=== PATIENT | female | born 1980 | race Caucasian/White ===

== ENCOUNTER 2021-06-06 10:57 | Outpatient (CLI) | payer OTHER, SELFPAY ==
[2021-06-09 08:18] LABS: Progesterone 11.8 ng/mL (***)
== END 2021-06-06 10:58 | disposition home or self-care (01) ==
LOC: ANHLAB 11:00
PROVIDERS: PCP Physician Assistant Medical; Visit Provider Obstetrics & Gynecology
DX: Z87.59 Personal history of other complications of pregnancy, childbirth and the puerperium (principal)
CPT/HCPCS: 36415; 84144; 84702

== ENCOUNTER 2021-06-08 12:53 | Outpatient (CLI) | payer OTHER, SELFPAY | END 2021-06-08 12:54 | disposition home or self-care (01) | LOC: ANHLAB 12:55 | PROVIDERS: PCP Physician Assistant Medical; Visit Provider Obstetrics & Gynecology | DX: Z87.59 Personal history of other complications of pregnancy, childbirth and the puerperium (principal) | CPT/HCPCS: 36415; 84702 ==

== ENCOUNTER 2021-06-14 12:28 | Outpatient (CLI) | payer OTHER, SELFPAY | END 2021-06-14 12:29 | disposition home or self-care (01) | LOC: ANHLAB 12:30 | PROVIDERS: PCP Physician Assistant Medical; Visit Provider Obstetrics & Gynecology | DX: Z34.90 Encounter for supervision of normal pregnancy, unspecified, unspecified trimester (principal); Z3A.00 Weeks of gestation of pregnancy not specified | CPT/HCPCS: 36415; 86850; 86900; 86901 ==

== ENCOUNTER 2021-08-02 11:43 | Outpatient (CLI) | payer OTHER, SELFPAY ==
--- NOTE | ~2021-08-02 | US_ITS ---
EXAMINATION: US OB follow up EXAM DATE: 08/02/2021 12:12 INDICATION: O46.90 - Antepartum hemorrhage, unspecified, unspecified. 2nd trimester. TECHNIQUE: Pelvic obstetrical transabdominal sonogram was performed by a technologist. There are mu ltiple grayscale and Doppler images available for interpretation. Comparison is made to prior examina tion from 06/14/2021. FINDINGS: There is a single fetus identified in breech presentation with a heart rate of 157 beats pe r minute. The placenta is located in the fundal position. There is anterior placental marginal relati vely homogeneous hypoechoic region without internal vascularity, could be retroplacental marginal hem atoma, region measuring 1 cm in thickness by up to 3.6 cm in diameter. Potentially could be the same region identified on limited available images from an ultrasound last month. BIOMETRIC DATA: Biparietal diameter (BPD): 2.9 cm ----------------> 15 weeks 2 days. Head circumference (HC): 10.5 cm ----------------> 15 weeks 0 days. Abdominal circumference (AC): 9.0 cm ----------> 15 weeks 1 day. Femur length (FL): 1.7 cm --------------------------> 15 weeks 1 day. These measurements are concordant. HC/AC ratio is 1.17 (The 5th -- 95th percentile range is 1.05-1.38. Estimated weight is 116 g +/- 17 g. This is the 91st percentile when the currently reported cl inical gestation age 14 weeks 2 days, clinical estimated date of delivery (KAROLINA-OPE) 01/29 is used. Fet al estimated gestational age based on measurements from this exam is 15 weeks 1 day, with an estimate d date of delivery (KAROLINA-AUA) 01/23. IMPRESSION: 1. Single fetus in breech presentation with heart rate 157 beats per minute. 2. Estimated weight of 116 grams, 91st percentile using the currently reported clinical gestat ion age of 14 weeks 2 days, KAROLINA(OPE) 01/29. 3. Placental marginal hypoechoic region, could be retroplacental hematoma. Reviewed, dictated and finalized at location A. ECTION SUPERVISOR IMPRESSION: 1. Single fetus in breech presentation with heart rate 157 beats per minute. 2. Estimated weight of 116 grams, 91st percentile using the currently re ported clinical gestation age of 14 weeks 2 days, KAROLINA(OPE) 01/29. 3. Placental marginal hypoechoic region, could be retroplacental hematoma.
== END 2021-08-02 11:44 | disposition home or self-care (01) ==
LOC: ANHIMG 11:46
PROVIDERS: PCP Physician Assistant Medical; Visit Provider Obstetrics & Gynecology
DX: O46.90 Antepartum hemorrhage, unspecified, unspecified trimester (principal); Z3A.14 14 weeks gestation of pregnancy; O32.1XX0 Maternal care for breech presentation, not applicable or unspecified
CPT/HCPCS: 76816

== ENCOUNTER 2021-09-18 09:51 | Outpatient (CLI) | payer OTHER, SELFPAY ==
[2021-09-18 11:26] LABS: Glucose 1 Hour PP 50gm Dose 165 mg/dL
== END 2021-09-18 09:52 | disposition home or self-care (01) ==
PROVIDERS: PCP Physician Assistant Medical; Visit Provider Obstetrics & Gynecology
DX: O09.92 Supervision of high risk pregnancy, unspecified, second trimester (principal); Z3A.00 Weeks of gestation of pregnancy not specified
CPT/HCPCS: 36415; 82947

== ENCOUNTER 2021-09-26 09:25 | Outpatient (CLI) | payer OTHER, SELFPAY ==
[2021-09-26 09:54] LABS: Glucose Fasting Gestational 98 mg/dL (>/=95)
[2021-09-26 11:28] LABS: Glucose 1 Hour Gest 182 mg/dL (>/=180)
[2021-09-26 12:58] LABS: Glucose 2 Hour Gest 144 mg/dL (>/= 155)
[2021-09-26 13:48] LABS: Glucose 3 Hour Gest 97 mg/dL (>/=140)
== END 2021-09-26 09:26 | disposition home or self-care (01) ==
PROVIDERS: PCP Physician Assistant Medical; Visit Provider Obstetrics & Gynecology
DX: R73.09 Other abnormal glucose (principal)
CPT/HCPCS: 36415; 82951; 82952

== ENCOUNTER 2021-11-09 11:13 | Outpatient (CLI) | payer OTHER, SELFPAY ==
[2021-11-09 11:31] LABS: Basophils Percent Auto 0.1 % (0.2-1.2); Eosinophils Absolute Auto 0.1 K/mm3 (0-0.3); Eosinophils Percent Auto 0.9 % (0-4.4); Hematocrit 37.2 % (37.0-47.0); Immature Granulocyte Absolute 0.06 K/mm3 (0.00-0.031); Immature Granulocyte Percent A 0.7 % (0-0.5); Lymphocytes Absolute Auto 1.73 K/mm3 (0.9-3.2); Lymphocytes Percent Auto 19.4 % (18.3-44.2); Mean Corpuscular HGB Conc 32.3 g/dl (32-36); Mean Corpuscular Hemoglobin 30.7 pg (26-34); Mean Corpuscular Volume 95.1 fl (80-100); Mean Platelet Volume 10.2 fl (7.4-10.4); Monocytes Absolute Auto 0.6 K/mm3 (0.1-0.6); Monocytes Percent Auto 6.9 % (2.6-8.5); Neutrophils Absolute Auto 6.4 K/mm3 (1.3-6.7); Platelet Count Result 162 k/mm3 (150-375); Red Blood Count 3.91 M/mm3 (4.2-5.4); Red Cell Distribution Width 16.2 % (11.5-14.5); White Blood Count 8.9 K/mm3 (4.5-10.0)
[2021-11-09 12:27] LABS: HIV 1/2 Ab P24 Ag Result Negative (Negative)
[2021-11-13 07:49] LABS: Rapid Plasma Reagin Non-Reactive (NonReactive)
== END 2021-11-09 11:14 | disposition home or self-care (01) ==
LOC: ANHLAB 11:15
PROVIDERS: PCP Physician Assistant Medical; Visit Provider Obstetrics & Gynecology
DX: Z34.90 Encounter for supervision of normal pregnancy, unspecified, unspecified trimester (principal); Z3A.00 Weeks of gestation of pregnancy not specified
CPT/HCPCS: 36415; 85025; 86592; 86703; G0432

== ENCOUNTER 2021-11-14 15:00 | Outpatient (RCR) | payer OTHER, SELFPAY ==
[2021-10-12 09:39] VITALS: BMI 42.7
[2021-10-12 09:44] VITALS: BMI 42.7
== END 2022-01-03 13:38 | disposition home or self-care (01) ==
LOC: ANHDMC 15:00
PROVIDERS: PCP Physician Assistant Medical; Visit Provider Obstetrics & Gynecology
DX: O24.419 Gestational diabetes mellitus in pregnancy, unspecified control (principal); Z3A.00 Weeks of gestation of pregnancy not specified; Z71.3 Dietary counseling and surveillance; Z71.89 Other specified counseling
CPT/HCPCS: 97802; G0108

== ENCOUNTER 2022-01-23 16:53 | Inpatient (IN) | payer OTHER, SELFPAY ==
[2022-01-23] VITALS (11 sets, daily range): BP systolic 113–174; BP diastolic 73–96; PULSE 72–100; TEMP 36.2; BMI 41.3
--- NOTE | 2022-01-23 18:54 | LDADM ---
This patient, Claudia Coffman, was admitted to Labor/Delivery/Recovery 104 on 01/23/22 at 16:53. Plans for labor, pain management and were discussed with patient. Patient/family oriented to hospital policies and general routines including ID bracelet, bed and alarms, visiting hours, pain management, procedures, bathroom and other care routines, personal items, smoking policy, room service/diet and guest tray routines, infant security routines, and visiting hours. Patient/Family are encouraged to report perceived risks to care and to ask questions if they do not understand what they are told or what they should do. See OBIX for further documentation.
[2022-01-23 19:08] LABS: Glucose Point of Care 92 mg/dl (65-105)
[2022-01-23 19:11] LABS: Basophils Percent Auto 0.1 % (0.2-1.2); Eosinophils Absolute Auto 0.1 K/mm3 (0-0.3); Eosinophils Percent Auto 0.6 % (0-4.4); Hematocrit 35.1 % (37.0-47.0); Hemoglobin 11.7 g/dL (12.0-15.0); Immature Granulocyte Absolute 0.06 K/mm3 (0.00-0.031); Immature Granulocyte Percent A 0.7 % (0-0.5); Lymphocytes Absolute Auto 1.44 K/mm3 (0.9-3.2); Lymphocytes Percent Auto 17.2 % (18.3-44.2); Mean Corpuscular HGB Conc 33.3 g/dl (32-36); Mean Corpuscular Hemoglobin 31.5 pg (26-34); Mean Corpuscular Volume 94.4 fl (80-100); Mean Platelet Volume 10.7 fl (7.4-10.4); Monocytes Absolute Auto 0.5 K/mm3 (0.1-0.6); Monocytes Percent Auto 6.2 % (2.6-8.5); Neutrophils Absolute Auto 6.3 K/mm3 (1.3-6.7); Neutrophils Percent Auto 75.2 % (45.5-73.1); Platelet Count Result 180 k/mm3 (150-375); Red Blood Count 3.72 M/mm3 (4.2-5.4); Red Cell Distribution Width 15.2 % (11.5-14.5); White Blood Count 8.4 K/mm3 (4.5-10.0)
[2022-01-23] MEDS: OXYTOCIN 30 UNITS/NS 500 ML 30 UNITS/500 ML BAG IV CONT (22:14)
[2022-01-23] MEDS: LACTATED RINGERS 1,000 ML 125 ML IV CONT (22:14)
[2022-01-23 22:21] LABS: Glucose Point of Care 121 mg/dl (65-105)
[2022-01-23] MEDS: INSULIN HUMAN NPH (*BKC) 100 UNITS/ML 30 UNITS SUB-Q (22:27)
[2022-01-24] VITALS (121 sets, daily range): BP systolic 93–161; BP diastolic 42–94; PULSE 62–123; RESP 16–18; TEMP 36.2–37; O2SAT 93–100
[2022-01-24 02:07] LABS: Glucose Point of Care 81 mg/dl (65-105)
[2022-01-24 06:50] LABS: Glucose Point of Care 77 mg/dl (65-105)
[2022-01-24] MEDS: LACTATED RINGERS 1,000 ML 125 ML IV CONT ×3 (07:29→11:41)
--- NOTE | 2022-01-24 08:42 | WPDANESEPP ---
Anes - Eval Pre Procedure Procedure: labor epidural Date/Time: 01/24/22 08:42 Pre Op Diagnosis: iol Patient Data Age: 41 Gender: F Height: 1.77 m Weight: 129 kg Last Vital Signs Temp 36.2 C L 01/24/22 06:44 Pulse 78 01/24/22 08:30 BP 147/81 H 01/24/22 08:30 O2 Del Method Room Air 01/23/22 18:53 Allergies Allergy/AdvReac Type Severity Reaction Status Date / Time No Known Allergies Allergy Verified 01/23/22 19:33 Home Medications Medication Instructions Recorded Confirmed Type lancets #100 ea 10/12/21 01/25/22 Rx blood-glucose meter (Blood Glucose #1 ea 10/27/21 01/25/22 Rx Monitoring kit) blood sugar diagnostic (Blood #100 ea 12/28/21 01/25/22 Rx Glucose Test strips) Laboratory Tests 01/23/22 01/23/22 01/23/22 19:01 19:01 19:01 WBC 8.4 K/mm3 K/mm3 (4.5-10.0) RBC 3.72 M/mm3 L M/mm3 (4.2-5.4) Hgb 11.7 g/dL L g/dL (12.0-15.0) Hct 35.1 % L % (37.0-47.0) MCV 94.4 fl fl (80-100) MCH 31.5 pg pg (26-34) MCHC 33.3 g/dl g/dl (32-36) RDW 15.2 % H % (11.5-14.5) Plt Count 180 k/mm3 k/mm3 (150-375) MPV 10.7 fl H fl (7.4-10.4) Immature Gran % (Auto) 0.7 % H % (0-0.5) Neut % (Auto) 75.2 % H % (45.5-73.1) Lymph % (Auto) 17.2 % L % (18.3-44.2) [place] % (Auto) 6.2 % % (2.6-8.5) Eos % (Auto) 0.6 % % (0-4.4) Baso % (Auto) 0.1 % L % (0.2-1.2) Lymph # (Auto) 1.44 K/mm3 K/mm3 (0.9-3.2) [place] # (Auto) 0.5 K/mm3 K/mm3 (0.1-0.6) Eos # (Auto) 0.1 K/mm3 K/mm3 (0-0.3) Baso # (Auto) 0.0 K/mm3 K/mm3 (0.0-0.1) Abs Immat Gran (auto) 0.06 K/mm3 H K/mm3 (0.00-0.031) Absolute Neuts (auto) 6.3 K/mm3 K/mm3 (1.3-6.7) Absolute Nucleated RBC 0.0 K/mm3 K/mm3 (0.0-0.012) Nucleated RBC % 0.0 % % (0.0-0.2) POC Capillary Glucose RPR Pending Blood Type O Positive Antibody Screen Negative 01/23/22 01/23/22 01/24/22 19:04 22:16 02:05 WBC RBC Hgb Hct MCV MCH MCHC RDW Plt Count MPV Immature Gran % (Auto) Neut % (Auto) Lymph % (Auto) [place] % (Auto) Eos % (Auto) Baso % (Auto) Lymph # (Auto) [place] # (Auto) Eos # (Auto) Baso # (Auto) Abs Immat Gran (auto) Absolute Neuts (auto) Absolute Nucleated RBC Nucleated RBC % POC Capillary Glucose 92 mg/dl mg/dl 121 mg/dl H mg/dl 81 mg/dl mg/dl (65-105) (65-105) (65-105) RPR Blood Type Antibody Screen 01/24/22 06:43 WBC RBC Hgb Hct MCV MCH MCHC RDW Plt Count MPV Immature Gran % (Auto) Neut % (Auto) Lymph % (Auto) [place] % (Auto) Eos % (Auto) Baso % (Auto) Lymph # (Auto) [place] # (Auto) Eos # (Auto) Baso # (Auto) Abs Immat Gran (auto) Absolute Neuts (auto) Absolute Nucleated RBC Nucleated RBC % POC Capillary Glucose 77 mg/dl mg/dl (65-105) RPR Blood Type Antibody Screen Patient hx anesthesia problems: none Family hx anesthesia problems: none Results Review: All pre-operative results and documents have been reviewed as part of the pre-operative evaluation. [facility] Past Medical History Medical History GERD (gastroesophageal reflux disease) Headache IBS (irritable bowel syndrome) Missed x1 Vaginal delivery x1 Surgical History Surgical History (Reviewed 01/28
[2022-01-24 09:13] LABS: Glucose Point of Care 90 mg/dl (65-105)
[2022-01-24 11:45] LABS: Glucose Point of Care 98 mg/dl (65-105)
[2022-01-24 13:16] LABS: Glucose Point of Care 86 mg/dl (65-105)
[2022-01-24] MEDS: OXYTOCIN 30 UNITS/NS 500 ML 30 UNITS/500 ML BAG 125 UNITS IV CONT (14:21)
--- NOTE | 2022-01-24 17:31 | OBPPTRN ---
1708-Patient transferred to post room #279 via wheelchair. Support person present. Oriented to unit, room, information board, rooming in, admission packet and security measures. Patient verbalizes understanding.
[2022-01-24] MEDS: IBUPROFEN 600 MG TABLET PO (18:10)
[2022-01-25] VITALS: BP 115/73; PULSE 87; RESP 18; TEMP 36.7; O2SAT 98
[2022-01-25 04:20] VITALS: BP 129/76; PULSE 75; RESP 16; TEMP 36.1; O2SAT 97
[2022-01-25 04:32] LABS: Hematocrit 36.5 % (37.0-47.0); Hemoglobin 11.6 g/dL (12.0-15.0)
[2022-01-25 05:06] LABS: Glucose Point of Care 79 mg/dl (65-105)
--- NOTE | 2022-01-25 07:27 | PM.IMHP ---
H&P: HPI History of Present Illness Date/Time: Chief Complaint: Medical induction of labor Narrative: patient is a 41-year-old at 39 weeks and 2 days by an EDC of 01/29/2022 which is based on a last menstrual period of 04/24/2021 and consistent with a 7 week ultrasound. course significant for advanced maternal age and insulin-requiring gestational diabetes. And BMI over 40. diabetes has been controlled she is on 30 NPH in the evening. She has had normal surveillance testing. her last ultrasound showed EFW in the 80th percentile prior to that the EFW has been in the 90th percentile. Labs have been reviewed. GBS negative. She has been informed of recommendations for medical induction of labor between 39-40 weeks. She opted for induction of labor to deliver on the . Her last exam in the office cervix was 1 and 50% and high though when she came in for the Cervidil her cervix was 3-4 cm reported by the examining nurse. Therefore she was started on Pitocin. Review of Systems Review of Systems: All systems reviewed & are unremarkable except as noted in HPI and below Constitutional: Constitutional: Reports no additional constitutional complaints and Denies headache(s) Eyes: Eyes: Denies spots in vision ENT: Reports system reviewed and no additional complaints, except as documented and Denies headache(s) Cardiovascular: Cardiovascular: Denies chest pain and Denies dyspnea Respiratory: Respiratory: Denies dyspnea Gastrointestinal: Gastrointestinal: Reports no additional gastrointestinal complaints Genitourinary: Genitourinary: Reports amenorrhea Musculoskeletal: Musculoskeletal: Reports no additional musculoskeletal complaints Integumentary/Breasts: Skin/Breast: Denies breast mass and Denies rash Neurologic: Denies headache(s) Psychiatric: Psychiatric: Reports no additional psychiatric complaints [facility] Past Medical History Medical History GERD (gastroesophageal reflux disease) Headache IBS (irritable bowel syndrome) Missed x1 Vaginal delivery x1 Surgical History Surgical History History of dilation and curettage S/P cholecystectomy [employer] [place] teeth extracted Family History Family History Mother Alcoholism Diabetes mellitus Depression Grandparent Alcoholism Breast cancer Liver cancer Uterine cancer Pancreatic cancer Social History Social History Smoking status: Never smoker Second hand tobacco smoke exposure: No Alcohol intake: never Substance use: never Spiritual care concerns: No Meds Home Medications and Allergies Home Medications Medication Instructions Recorded Confirmed Type Lactobacills gasseri-Bifidobac 1 cap PO DAILY 02/21/21 01/23/22 History bifidum,longum 1.5 billion cell capsule ([employer]) cetirizine 10 mg capsule (Zyrtec) 10 mg PO DAILY PRN Allergy Symptoms 02/21/21 01/23/22 History cholecalciferol (vitamin D3) 125 125 mcg PO DAILY 02/21/21 01/23/22 History mcg (5,000 unit) capsule docosahexaenoic acid 200 mg 200 mg PO DAILY #90 caps 06/08/21 01/23/22 Rx capsule ( DHA) aspirin 81 mg tablet,delayed 81 mg PO DAILY 08/17/21 01/23/22 History release lancets #100 ea 10/12/21 01/20/22 Rx blood-glucose meter (Blood Glucose #1 ea 10/27/21 01/20/22 Rx Monitoring kit) blood sugar diagnostic (Blood #100 ea 12/28/21 01/20/22 Rx Glucose Test strips) docusate sodium 100 mg capsule 100 mg PO DAILY 01/03/22 01/23/22 History (Colace) insulin NPH isoph U-100 human 100 30 unit (0.3 mL) subcut QPM #2 01/03/22 01/23/22 Rx unit/mL subcutaneous suspension vials Allergies Allergy/AdvReac Type Severity Reaction Status Date / Time No Known Allergies Allergy
--- NOTE | 2022-01-25 07:42 | PM.OBPRVD ---
OB - Delivery Note Procedure Delivery date: 01/24/22 Procedure: Spontaneous vaginal delivery Events: Elective Induction of Labor and Gestational Diabetes Induction method: Per Pitocin Protocol Delivery augmentation: Rupture of Membranes ( clear) Delivery monitor: Internal FHT and Internal Uterine Route of delivery: Prior to decision for section, ACOG/SMFM labor guidelines were considered and discussed with the patient and staff. Decision made to proceed with the section.: No Laceration Description: None Specimen: No Quantitative Blood Loss (ml): 150 Anesthesia type: Epidural Disposition: Floor Complications: none Narrative: patient admitted on the evening of 01 23 for planned induction of labor with Cervidil but on admission her cervix was favorable. She was started on Pitocin. Her blood sugars were monitored throughout labor and were normal. She did have assisted rupture of membranes the morning of 622 and due to difficulty in monitoring her contractions and intrauterine pressure catheter was placed. She progressed into active labor and FSE was placed by a nurse in labor due to inability to tract the heart tones well. She progressed to complete. She delivered a male infant. Infant was vigorously crying upon delivery. Infant was placed on maternal abdomen and then taken to the warmer. Baby Date of : 01/24/22 Time of : 13:59 Weeks of gestation at delivery: 39 gender: Male Weight (pounds): 7 Weight (ounces): 8 presentation: vertex position: Right Occiput Anterior Placenta delivery description: Spontaneous score one minute: 9 score five minutes: 9 AMG Delivery Billing Delivery Delivery: Delivery Charge
[2022-01-25 08:00] VITALS: PULSE 88; RESP 18; O2SAT 98
[2022-01-25 08:05] VITALS: BP 117/75; PULSE 88; RESP 18; TEMP 36.9; O2SAT 98
--- NOTE | 2022-01-25 08:19 | PM.OBPNVD ---
OB - PN: Subj Subjective Date/time seen: 01/25/22 08:19 Interval history: She states pelvic pain controlled with Motrin. She has ambulated. Tolerated regular diet. Lochia decreasing. She is bottle feeding baby. Baby doing well. Patient comments: pain well controlled, tolerating diet and other (Decreasing lochia.) [place] baby status: doing well and nursing well OB - PN: Obj Data Labs CBC & Chem 7: 01/25/22 03:48 Labs: Laboratory Results - last 24 hr 01/24/22 01/24/22 01/24/22 09:10 11:39 13:14 Hgb Hct POC Capillary Glucose 90 98 86 01/25/22 01/25/22 03:48 05:03 Hgb 11.6 L Hct 36.5 L POC Capillary Glucose 79 OB - PN A/P Plan day: 1 Plan: routine care Comments: Patient doing well. She wants to be discharged today. Will allow discharge if baby is discharged. Discussed discharge precautions. Time Spent With Patient Time: Total time spent is greater than 50% in coordination of care (as documented) at patient's floor/unit and/or counseling patient: Exam Const: General: comfortable and no acute distress Psych: Affect: normal affect Other: Abd: fundus firm below umbilicus, nontender Perineum: healing Ext: nontender
[2022-01-25] MEDS: IBUPROFEN 600 MG TABLET PO (08:41)
[2022-01-25 10:58] LABS: Rapid Plasma Reagin Non-Reactive (NonReactive)
--- NOTE | 2022-01-25 11:47 | WPDANLDPN2 ---
Anes-Prog Note L&D Date/Time: 01/25/22 11:47 Neuro status: Neuro function grossly intact. Vital Signs: Last Vital Signs Temp 36.9 C 01/25/22 08:05 Pulse 88 01/25/22 08:05 Resp 18 01/25/22 08:05 BP 117/75 01/25/22 08:05 Pulse Ox 98 01/25/22 08:05 O2 Del Method Room Air 01/24/22 20:15 Pain score (VAS): 0 Patient feedback: Patient satisfied with anesthetic care.
[2022-01-25 12:22] VITALS: BP 106/71; PULSE 76; RESP 16; TEMP 36.3; O2SAT 97
[2022-01-26 09:52] VITALS: BP 129/78; PULSE 84; RESP 20; TEMP 36.9; O2SAT 98
--- NOTE | 2022-03-05 08:09 | PM.OBDSVD ---
DS: Admitting Diagnosis Discharge Date 01/25/22 Admitting Diagnosis medical induction of labor 2. Gestational diabetes. DS: Discharge Diagnosis Discharge Diagnosis Plan Delivery normal. Gestational diabetes. OB - DS: Summary Hospital Course Hospital Course: Patient was admitted for medical induction of labor. She had an uncomplicated vaginal delivery. she did well. Baby was doing well. Had adequate pain control was ambulating. Lochia decreased. OB Procedures : Ultrasound OB Procedures Intrapartum: Spontaneous Vag Delivery OB Procedures: : None Peripartum Data Infant Delivery Method: Natural Vaginal complications: none Time Spent with Patient Time attestation: Total time spent providing and/or coordinating discharge services: Exam Const: General: cooperative Orientation/consciousness: oriented to person, oriented to place and oriented to time HENMT: General nose exam: Normal external nose present Eyes: General: appearance normal, both eyes and all related structures Resp: Effort & Inspection: normal respiratory effort GI: Inspection: normal to inspection Skin: General skin exam: normal color Neuro: General: oriented to person, oriented to place and oriented to time Extrem: General: normal to inspection and no calf tenderness Psych: Appearance: grossly normal Mental Status: mental status grossly normal Discharge Plan Discharge Attending physician on discharge: Braulio Peguero Consulting providers: Bethanie Desai ; Ambreen Galdamez Discharging Clinician: Braulio Peguero Anticipated Discharge Date/Time: 01/25/22 14:56 Patient Disposition: Home, Self-Care Activity: may shower and pelvic rest Diet: regular Discharge Instructions: Education: Mom and Baby Guide Given to: Mother Follow-Up: Call your delivering provider's office for an appointment to be seen in: Call for appointment Mom and baby should come to the [facility] for the follow-up appointment. Appointment Date/Time: Wednesday, January 26, 2022 at 10:00 a.m. What to expect at your follow-up visit: Blood Pressure Check Physical Assessment Call [phone] if you are unable to keep your appointment time. BREAST CARE: * Wear a snug supportive bra. * For engorgement discomfort: Bottle Feeding: * May apply ice packs EPISIOTOMY/PERINEAL CARE: * Until bleeding stops, use your alie bottle after urinating * Change your pad frequently throughout the day * You may take sitz baths several times a day (fill your bathtub with warm water and soak for 20 minutes.) Do NOT bathe in the water * No tub baths until seen by your physician - You may shower ACTIVITY: * Rest as much as possible. * Do not exercise or lift anything heavier than your baby (such as laundry or other children.) * Avoid stairs or driving as much as possible. * Do not put anything into the vagina. No douching, tampons, or sexual activity until seen by physician. NOTIFY PHYSICIAN IF YOU HAVE ANY QUESTIONS OR IF ANY OF THE FOLLOWING SYMPTOMS OCCUR: * If your vaginal bleeding becomes foul smelling. * If your vaginal bleeding becomes more heavy than a period or if your bleeding changes from pink to bright red. However, you may pass an occasional walnut-sized clot once or twice for the first week . * If you experience a sharp, shooting pain in you calves DIET: * Eat regular, well-balanced meals. * Drink plenty of fluids daily. Stand Alone Forms: General Discharge Information Follow-up/Referrals: Braulio Peguero MD [Physician] - Call for Appointment (make follow up appointment for 4-6 wekks ) Discharge Medications: Continued (DME) lancets Misc See Rx Instructions .Route Qty: 100 2RF Rx Instructions: As directed (DME) Blood Glucose Test Strip See Rx Instructions .Route Qty: 100 2RF Rx Instruction
--- NOTE | 2022-03-05 08:30 | PM.DS ---
DS: Admitting Diagnosis Discharge Date 01/25/22 Admitting Diagnosis Medical induction of labor 2. DS: Summary Time Spent with Patient Time attestation: Total time spent providing and/or coordinating discharge services: Discharge Plan Discharge Attending physician on discharge: Braulio Peguero Consulting providers: Bethanie Desai ; Ambreen Galdamez Discharging Clinician: Braulio Peguero Anticipated Discharge Date/Time: 01/25/22 14:56 Patient Disposition: Home, Self-Care Activity: may shower and pelvic rest Diet: regular Discharge Instructions: Education: Mom and Baby Guide Given to: Mother Follow-Up: Call your delivering provider's office for an appointment to be seen in: Call for appointment Mom and baby should come to the [facility] for the follow-up appointment. Appointment Date/Time: Wednesday, January 26, 2022 at 10:00 a.m. What to expect at your follow-up visit: Blood Pressure Check Physical Assessment Call [phone] if you are unable to keep your appointment time. BREAST CARE: * Wear a snug supportive bra. * For engorgement discomfort: Bottle Feeding: * May apply ice packs EPISIOTOMY/PERINEAL CARE: * Until bleeding stops, use your alie bottle after urinating * Change your pad frequently throughout the day * You may take sitz baths several times a day (fill your bathtub with warm water and soak for 20 minutes.) Do NOT bathe in the water * No tub baths until seen by your physician - You may shower ACTIVITY: * Rest as much as possible. * Do not exercise or lift anything heavier than your baby (such as laundry or other children.) * Avoid stairs or driving as much as possible. * Do not put anything into the vagina. No douching, tampons, or sexual activity until seen by physician. NOTIFY PHYSICIAN IF YOU HAVE ANY QUESTIONS OR IF ANY OF THE FOLLOWING SYMPTOMS OCCUR: * If your vaginal bleeding becomes foul smelling. * If your vaginal bleeding becomes more heavy than a period or if your bleeding changes from pink to bright red. However, you may pass an occasional walnut-sized clot once or twice for the first week . * If you experience a sharp, shooting pain in you calves DIET: * Eat regular, well-balanced meals. * Drink plenty of fluids daily. Stand Alone Forms: General Discharge Information Follow-up/Referrals: Braulio Peguero MD [Physician] - Call for Appointment (make follow up appointment for 4-6 wekks ) Discharge Medications: Continued (DME) lancets Misc See Rx Instructions .Route Qty: 100 2RF Rx Instructions: As directed (DME) Blood Glucose Test Strip See Rx Instructions .Route Qty: 100 2RF Rx Instructions: As directed four times a day (DME) blood-glucose meter [Blood Glucose Monitoring] Kit See Rx Instructions .ROUTE .MEDSUPPLY Qty: 1 0RF Rx Instructions: As directed four times day Discontinued cholecalciferol (vitamin D3) 125 mcg (5,000 unit) capsule 125 mcg PO DAILY [employer] 1.5 billion cell capsule 1 cap PO DAILY Zyrtec 10 mg capsule 10 mg PO DAILY PRN (Reason: Allergy Symptoms) aspirin 81 mg tablet,delayed release (DR/EC) 81 mg PO DAILY insulin NPH isoph U-100 human 100 unit/mL suspension 30 unit subcut QPM Qty: 2 0RF DHA 200 mg capsule 200 mg PO DAILY Qty: 90 2RF Rx Instructions: Can substitute for DHA that is covered by insurance docusate sodium [Colace] 100 mg Capsule 100 mg PO DAILY Date of admission: 01/23/22 16:53 Primary Care Provider: Nisreen Aguirre I. Admitting Provider: Braulio Peguero Attending physician on admission: Braulio Peguero Condition: Stable
== END 2022-01-25 16:54 | disposition home or self-care (01) | DRG 807 ==
LOC: ANHLDR 16:56 → ANHOB2 01-24 17:32
PROVIDERS: Admitting Provider Obstetrics & Gynecology; PCP Physician Assistant Medical; Visit Provider Obstetrics & Gynecology
DX: O24.424 Gestational diabetes mellitus in childbirth, insulin controlled (principal); Z37.0 Single live birth; Z3A.39 39 weeks gestation of pregnancy; O69.81X0 Labor and delivery complicated by cord around neck, without compression, not applicable or unspecified
CPT/HCPCS: 36415; 82948; 85014; 85018; 85025; 86592; 86850; 86900; 86901; A9270; J1815; J2590; J2795; J7120

== ENCOUNTER 2022-01-27 18:46 | Emergency (ER) | payer OTHER, SELFPAY ==
[2022-01-27 18:57] VITALS: BP 144/82; PULSE 91; RESP 18; TEMP 36.3; O2SAT 99
--- NOTE | 2022-01-27 19:32 | ED.PREGNANCY ---
HPI - General Chief complaint: Vaginal Bleeding Stated complaint: delivered a baby Wed today passed a large clot Time Seen by Provider: 01/27/22 19:25 History of Present Illness HPI Narrative: 41-year-old female presents emergency room for evaluation of passing a large clot vaginally. Patient states she gave vaginal to a baby on Saturday, and experienced no complications. Patient states she has gestational diabetes. Also reports generalized lower abdominal pain. Denies any dysuria. Denies fever. Related Data Allergies Allergy/AdvReac Type Severity Reaction Status Date / Time No Known Allergies Allergy Verified 01/23/22 19:33 Review of Systems Review of Systems: CONSTITUTIONAL: Denies fever, chills, or sweats. EYES: Denies visual changes, redness, or discharge. ENT: Denies rhinorrhea, congestion, sore throat, or otalgia. CARDIOVASCULAR: Denies chest pain, palpitations, or edema. RESPIRATORY: Denies cough or dyspnea. GASTROINTESTINAL: Reports abdominal pain and nausea GENITOURINARY: Reports vaginal bleeding. SKIN: Denies rash or itching. MUSCULOSKELETAL: Denies back pain, joint pain, or myalgia. NEUROLOGIC: Denies headache, numbness, dizziness, or weakness. PSYCHIATRIC: Denies anxiety or depression. PMFSH Past Medical History Medical History GERD (gastroesophageal reflux disease) Headache IBS (irritable bowel syndrome) Missed x1 Vaginal delivery x1 Surgical History Surgical History History of dilation and curettage S/P cholecystectomy [place] teeth extracted Family History Family History Mother Alcoholism Diabetes mellitus Depression Grandparent Alcoholism Breast cancer Liver cancer Uterine cancer Pancreatic cancer Social History Social History Smoking status: Never smoker Second hand tobacco smoke exposure: No Alcohol intake: never Substance use: never Spiritual care concerns: No Exam Narrative: GENERAL: Well-appearing, well-nourished, and in no acute distress. HEAD: Normocephalic, atraumatic. EYES: PERRLA and EOMI. CHEST: Clear to auscultation. No respiratory distress. No wheezes rales or rhonchi HEART: Regular rate and rhythm. No murmur heard. Normal peripheral pulses. ABDOMEN: Soft, lower abdominal tenderness, nondistended, normal active bowel sounds. EXTREMITIES: Normal range of motion. No edema. SKIN: Warm, dry, no rash. NEURO: No focal deficits. Alert and oriented x3. PSYCH: Normal mood and affect. Course Vital Signs Vital signs: Vital Signs Temperature 36.3 C L 01/27/22 18:57 Pulse Rate 91 01/27/22 18:57 Respiratory Rate 18 01/27/22 18:57 Blood Pressure 144/82 H 01/27/22 18:57 Pulse Oximetry 99 01/27/22 18:57 Oxygen Delivery Room Air 01/27/22 18:57 Temperature 36.3 C L 01/27/22 18:57 Pulse Rate 91 01/27/22 18:57 Respiratory Rate 18 01/27/22 18:57 Blood Pressure 144/82 H 01/27/22 18:57 Pulse Oximetry 99 01/27/22 18:57 Oxygen Delivery Room Air 01/27/22 18:57 MDM - OB/Uterine Contractions MDM Narrative Medical decision making narrative: 41-year-old female presented to the emergency room complaints of vaginal bleeding. States that she had passed a golf ball sized clot earlier in the day which caused her some mild lower abdominal cramping. Patient is hemodynamically stable. CBC and CMP showed no evidence of a blood loss. Discussed case with Dr. Kohli, LEAK INSPECTOR. She states that patient should follow-up with her clinic next week. Lab Data Result diagrams: 01/27/22 19:38 01/27/22 19:38 Labs: Lab Results 01/27/22 01/27/22 Range/Units 19:38 19:38 WBC 9.2 (4.5-10.0) K/mm3 RBC 3.71 L (4.2-5.4) M/mm3 Hgb 11.5 L (12.0-15
[2022-01-27] MEDS: SODIUM CHLORIDE 0.9% IV 1,000 ML 999 ML IV CONT (19:39)
[2022-01-27] MEDS: ONDANSETRON INJ 4 MG/2 ML VIAL IV PUSH (19:40)
[2022-01-27 19:48] LABS: Basophils Percent Auto 0.2 % (0.2-1.2); Eosinophils Absolute Auto 0.1 K/mm3 (0-0.3); Eosinophils Percent Auto 1.1 % (0-4.4); Hemoglobin 11.5 g/dL (12.0-15.0); Immature Granulocyte Absolute 0.06 K/mm3 (0.00-0.031); Immature Granulocyte Percent A 0.7 % (0-0.5); Lymphocytes Absolute Auto 1.48 K/mm3 (0.9-3.2); Lymphocytes Percent Auto 16.2 % (18.3-44.2); Mean Corpuscular HGB Conc 31.9 g/dl (32-36); Mean Platelet Volume 9.7 fl (7.4-10.4); Monocytes Absolute Auto 0.5 K/mm3 (0.1-0.6); Monocytes Percent Auto 5.4 % (2.6-8.5); Neutrophils Percent Auto 76.4 % (45.5-73.1); Platelet Count Result 159 k/mm3 (150-375); Red Blood Count 3.71 M/mm3 (4.2-5.4); White Blood Count 9.2 K/mm3 (4.5-10.0)
[2022-01-27 19:58] LABS: Alanine Aminotransferase 17 U/L (6-35); Albumin Level 3.4 g/dL (3.5-5.1); Alkaline Phosphatase 91 U/L (38-126); Anion Gap 4 mmol/L (8-16); Aspartate Amino Transferase 25 U/L (14-36); Bilirubin,Total 0.1 mg/dL (0.2-1.3); Blood Urea Nitrogen 8 mg/dL (7-17); Calcium 8.9 mg/dL (8.4-10.2); Carbon Dioxide 29 mmol/L (22-30); Chloride 104 mmol/L (98-107); Estimated CRCL calculation 114 ml/min; Estimated Glomerular Filt Rate > 60; Glucose 95 mg/dL (65-110); Potassium 4.2 mmol/L (3.4-5.0); Sodium 137 mmol/L (137-145)
--- NOTE | 2022-01-27 20:42 | PC.NURSE ---
This nurse went into discharge patient and patient and her voiced concerns about her plan of care. Patient requested a second opinion by OB. This nurse spoke with provider and asic design engineer. asic design engineer spoke with OB and an OB nurse will come to speak with patient. Patient informed and agreeable with plan.
--- NOTE | 2022-01-27 20:47 | PC.NURSE ---
Sandra, an OB nurse arrives at bedside to assess patient.
--- NOTE | 2022-01-27 21:00 | PC.NURSE ---
Patient states she feels much better after speaking with Sandra and assessed by her. Patient states peace of mind.
== END 2022-01-27 21:03 | disposition home or self-care (01) ==
PROVIDERS: Emergency Medicine; Emergency Provider Nurse Practitioner Family; PCP Obstetrics & Gynecology
DX: O72.2 Delayed and secondary postpartum hemorrhage (principal); O24.439 Gestational diabetes mellitus in the puerperium, unspecified control; O99.63 Diseases of the digestive system complicating the puerperium; K21.9 Gastro-esophageal reflux disease without esophagitis; K58.9 Irritable bowel syndrome, unspecified
CPT/HCPCS: 36415; 80053; 85025; 96361; 96374; 99284; J2405; J7030

== ENCOUNTER 2022-07-11 01:07 | Day surgery (SDC) | payer OTHER, SELFPAY ==
[2022-07-02 13:02] VITALS: BMI 38.3
--- NOTE | 2022-07-02 13:04 | SUR.PREOP ---
Report to the Outpatient Waiting Room, entrance under the green pavilion located off [facility], at time _0730 on date _07/11/22 . Planned Procedure Time: _929 . Time changes happen often and if your time is changed the preop area will call you the afternoon before. - You and your visitor will be asked to self-screen and do not enter if you have any COVID symptoms. - Only one visitor is requested with a max of two and NO children visitors are allowed at this time. - The patient visitor may be requested to leave or wait in car when not with patient due to distancing restrictions. - A mask is optional within the hospital. Patients may have clear liquids (water, carbonated beverages, clear teas, apple juice) until 3 hours prior to surgery with a maximum of 20 ounces. - No food from midnight until time of surgery - Infants may have breast milk until 4 hours before surgery, infant formula 6 hours prior to surgery. - Children will be allowed to drink immediately following surgery. If applicable, please bring a bottle or sippy cup to assist with drinking. Juice, water, soda, and popsicles are readily available. For infants on formula, please bring formula the day of surgery. Pacifiers are allowed. Take the following medications with a SIP of water the morning of surgery: ___n/a Medications to discontinue per physician ___vitamin supplements Date to take last dose__07/08/22 Please no make-up, nail bahamian, hairspray, perfume, deodorant, or body powder the day of surgery. No jewelry (including any body piercings) or valuables the day of surgery, leave them at home. Please take a shower or bath the night before, or the morning of, surgery with an antibacterial soap. Wear comfortable, loose fitting clothing. Children are encouraged to wear pajamas. - Jewelry must be removed prior to entering the operating room. Rings and piercings that are not removed may be cut off. - The hospital will not accept responsibility for valuables. - Please leave all valuables, including medications, at home the day of surgery. If you are going home after surgery, a licensed cdl b driver must drive you home. - NO public transportation without another adult if you receive anesthesia. - We recommend that an adult stay with you for 24 hours following discharge. - We also recommend that you do not drive, make important decision, drink alcoholic beverages, or take any drugs that were not prescribed by your health care provider for at least 24 hours after your discharge time. For Pediatric surgeries, we recommend two adults accompany the child home. Follow any additional instructions given to you from your surgeon. If you or anyone in your household have experienced Covid symptoms in the past week, please notify your surgeon or the nurse liaison at the phone number below for possible testing. Telephone instructions given to ivy amaya and asked if any additional questions and then verbalized understanding. Patient advised to call surgeon office or pre surgery nurse liaison [phone] if any additional questions.
[2022-07-11] VITALS (9 sets, daily range): BP systolic 106–140; BP diastolic 62–86; PULSE 74–101; RESP 12–20; TEMP 36.2–36.6; O2SAT 92–98
[2022-07-11] MEDS: ACETAMINOPHEN 500 MG TABLET 1000 MG PO (08:08)
[2022-07-11] MEDS: LACTATED RINGERS 1,000 ML 30 ML IV CONT ×2 (08:10→11:04)
[2022-07-11] MEDS: KETOROLAC 15 MG/ML VIAL (*BKC) IV PUSH (08:15)
--- NOTE | 2022-07-11 08:54 | WPDANESEPPF ---
Anes - Initial Pre Proc Eval Procedure: Operation Date: 07/11/22 09:30 Proposed Procedures p Bilateral Laparoscopic Salpingectomy - Braulio Peguero MD s Rectal Examination Under Anesthesia, Hemorrhoidectomy - Heena Machuca MD Date/Time: 07/11/22 08:54 Surgeon: Braulio Peguero MD Pre Op Diagnosis: desires sterilization, External Hemorrhoids Patient Data Age: 41 Gender: F Height: 1.77 m Weight: 124.3 kg Last Vital Signs Temp 36.2 C L 07/11/22 07:52 Pulse 87 07/11/22 07:52 Resp 20 07/11/22 07:52 BP 135/86 07/11/22 07:52 Pulse Ox 98 07/11/22 07:52 O2 Del Method Room Air 07/11/22 07:52 Allergies Allergy/AdvReac Type Severity Reaction Status Date / Time No Known Allergies Allergy Verified 07/02/22 12:38 Home Medications Medication Instructions Recorded Confirmed Type cetirizine 10 mg capsule (Zyrtec) 10 mg PO DAILY 03/08/22 07/11/22 History cholecalciferol (vitamin D3) 25 100 mcg PO DAILY 03/08/22 07/11/22 History mcg (1,000 unit) capsule docusate sodium 50 mg capsule 100 mg PO DAILY 03/08/22 07/11/22 History (Stool Softener) prenat.vits,ebonie,jmr-wiiz-qijgj 1 tablet PO DAILY 03/08/22 07/11/22 History wheat dextrin 5 gram/7.4 gram oral 5 g PO BID 07/02/22 07/11/22 History powder (Benefiber Healthy Shape) metronidazole 500 mg tablet 500 mg PO TID 07/11/22 07/11/22 History penicillin V potassium 500 mg 500 mg PO QID 07/11/22 07/11/22 History tablet Patient hx anesthesia problems: none Family hx anesthesia problems: none Results Review: All pre-operative results and documents have been reviewed as part of the pre-operative evaluation. [facility] Past Medical History Medical History GERD (gastroesophageal reflux disease) Headache IBS (irritable bowel syndrome) Missed x1 Vaginal delivery x2 Surgical History Surgical History History of dilation and curettage S/P cholecystectomy [place] teeth extracted Family History Family History Mother Alcoholism Diabetes mellitus Depression Grandparent Alcoholism Breast cancer Liver cancer Uterine cancer Pancreatic cancer Social History Social History Social History: occasional caffeine use- soda Smoking status: Never smoker Second hand tobacco smoke exposure: No Alcohol intake: never Substance use: never Living arrangements: with family Additional living arrangements comments: Patient is and has two children. 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 Gender identity (if verbalized by the patient): Female Sexual Orientation (if Verbalized by the Patient): Straight or Heterosexual Spiritual care concerns: No Anes - Eval Final PreProcedure Day of Procedure 07/11/22 08:54 Patient weight: morbidly obese Heart: regular rate and rhythm Lungs: clear to auscultation Airway: Mallampati scale class III and special considerations poor opening Neurological: alert and oriented Last oral intake: >/= 8 hours ASA classification: III Emergent: no Anesthetic plan: proceed Anesthesia type and monitoring: general ETT and standard monitoring Results Review: All pre-operative results and documents have been reviewed as part of the pre-operative evaluation. Informed Consent: The patient's anesthetic plan and its attendant risks and benefits were discussed with the patient/family/POA. Questions were solicited and answers provided to the satisfaction of the patient/family/POA.
--- NOTE | 2022-07-11 08:55 | PM.IMHP ---
H&P: HPI History of Present Illness Date/Time: 07/11/22 08:55 Chief Complaint: Satisfied parity Narrative: She is scheduled today for laparoscopic bilateral salpingectomy for sterilization. She is a Para 2. She has satisfied parity. She declines all other non permanent forms of contraception. Spouse declines vasectomy. She denies pelvic pain. She will also get a hemorrhoidectomy by Dr. Machuca during this OR visit. Review of Systems Review of Systems: All systems reviewed & are unremarkable except as noted in HPI and below Constitutional: Constitutional: Reports no additional constitutional complaints Eyes: Eyes: Reports no additional eye complaints Cardiovascular: Cardiovascular: Reports no additional cardiovascular complaints Respiratory: Respiratory: Reports no additional respiratory complaints Gastrointestinal: Gastrointestinal: Reports no additional gastrointestinal complaints Genitourinary: Genitourinary: Reports no additional female genitourinary complaints and Reports as per HPI Integumentary/Breasts: Skin/Breast: Reports system reviewed and no additional complaints, except as docu Neurologic: Reports system reviewed and no additional complaints, except as documented Psychiatric: Psychiatric: Reports no additional psychiatric complaints Hematologic/Lymphatic: Hematologic/Lymphatic: Reports no additional hematologic/lymphatic complaints [facility] Past Medical History Medical History GERD (gastroesophageal reflux disease) Headache IBS (irritable bowel syndrome) Missed x1 Vaginal delivery x2 Surgical History Surgical History History of dilation and curettage S/P cholecystectomy [place] teeth extracted Family History Family History Mother Alcoholism Diabetes mellitus Depression Grandparent Alcoholism Breast cancer Liver cancer Uterine cancer Pancreatic cancer Social History Social History Social History: occasional caffeine use- soda Smoking status: Never smoker Second hand tobacco smoke exposure: No Alcohol intake: never Substance use: never Living arrangements: with family Additional living arrangements comments: Patient is and has two children. 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 Gender identity (if verbalized by the patient): Female Sexual Orientation (if Verbalized by the Patient): Straight or Heterosexual Spiritual care concerns: No Meds Home Medications and Allergies Home Medications Medication Instructions Recorded Confirmed Type cetirizine 10 mg capsule (Zyrtec) 10 mg PO DAILY 03/08/22 07/11/22 History cholecalciferol (vitamin D3) 25 100 mcg PO DAILY 03/08/22 07/11/22 History mcg (1,000 unit) capsule docusate sodium 50 mg capsule 100 mg PO DAILY 03/08/22 07/11/22 History (Stool Softener) prenat.vits,ebonie,vfw-xmds-rkpos 1 tablet PO DAILY 03/08/22 07/11/22 History wheat dextrin 5 gram/7.4 gram oral 5 g PO BID 07/02/22 07/11/22 History powder (Benefiber Healthy Shape) metronidazole 500 mg tablet 500 mg PO TID 07/11/22 07/11/22 History penicillin V potassium 500 mg 500 mg PO QID 07/11/22 07/11/22 History tablet Allergies Allergy/AdvReac Type Severity Reaction Status Date / Time No Known Allergies Allergy Verified 07/02/22 12:38 Vital Signs Vital Signs - 24 hr 07/11/22 07:52 Temperature 97.1 F L Pulse Rate 87 Respiratory Rate 20 Blood Pressure 135/86 Pulse Oximetry 98 Oxygen Delivery Room Air Exam Const: General: comfortable and no acute distress Orientation/consciousness: oriented to person, oriented to place and oriented to time Eyes: General: appearance normal, both eyes and all related structures Neck: Neck: normal visual inspection Resp:
--- NOTE | 2022-07-11 09:36 | PM.IMHP ---
H&P: HPI History of Present Illness Date/Time: 07/11/22 09:36 Chief Complaint: external hemorrhoids Narrative: Claudia is a 41 y/o female who presents with hemorrhoids at the request of Dr. Peguero. She reports first experiencing symptoms when this past November. She states there is a protrusion from her anus that does not go away along with irritation. The protrusion makes hygiene harder. She denies blood during or after BM's. She has tried OTC Preparation H, Proctofoam, and Tucks pads with no relief. She is going to be scheduled for a bilateral salpingectomy with Dr. Peguero and would like surgery coordinated if possible. Review of Systems Review of Systems: All systems reviewed & are unremarkable except as noted in HPI and below PMFSH Past Medical History Medical History GERD (gastroesophageal reflux disease) Headache IBS (irritable bowel syndrome) Missed x1 Vaginal delivery x2 Surgical History Surgical History History of dilation and curettage S/P cholecystectomy [place] teeth extracted Family History Family History Mother Alcoholism Diabetes mellitus Depression Grandparent Alcoholism Breast cancer Liver cancer Uterine cancer Pancreatic cancer Social History Social History Social History: occasional caffeine use- soda Smoking status: Never smoker Second hand tobacco smoke exposure: No Alcohol intake: never Substance use: never Living arrangements: with family Additional living arrangements comments: Patient is and has two children. 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 Gender identity (if verbalized by the patient): Female Sexual Orientation (if Verbalized by the Patient): Straight or Heterosexual Spiritual care concerns: No Meds Home Medications and Allergies Home Medications Medication Instructions Recorded Confirmed Type cetirizine 10 mg capsule (Zyrtec) 10 mg PO DAILY 03/08/22 07/11/22 History cholecalciferol (vitamin D3) 25 100 mcg PO DAILY 03/08/22 07/11/22 History mcg (1,000 unit) capsule docusate sodium 50 mg capsule 100 mg PO DAILY 03/08/22 07/11/22 History (Stool Softener) prenat.vits,ebonie,nzk-wxiq-eptmp 1 tablet PO DAILY 03/08/22 07/11/22 History wheat dextrin 5 gram/7.4 gram oral 5 g PO BID 07/02/22 07/11/22 History powder (Benefiber Healthy Shape) metronidazole 500 mg tablet 500 mg PO TID 07/11/22 07/11/22 History penicillin V potassium 500 mg 500 mg PO QID 07/11/22 07/11/22 History tablet Allergies Allergy/AdvReac Type Severity Reaction Status Date / Time No Known Allergies Allergy Verified 07/02/22 12:38 Vital Signs Vital Signs - 24 hr 07/11/22 07:52 Temperature 36.2 C L Pulse Rate 87 Respiratory Rate 20 Blood Pressure 135/86 Pulse Oximetry 98 Oxygen Delivery Room Air Exam Const: General: cooperative, comfortable, no acute distress and obese Resp: Auscultation: clear to auscultation bilaterally Cardio: Rate: regular rate Rhythm: regular rhythm GI: Inspection: normal to inspection GI Palp: No abdominal tenderness, Yes Soft to palpation, No Tenderness to palpation present (GI), No Guarding due to palpation present (GI) and No Rigid due to palpation Assessment and Plan Assessment and plan (1) External hemorrhoids: Code(s): K64.4 - Residual hemorrhoidal skin tags Status: Acute Assessment and Plan: setup for EUA, hemorrhoidectomy concurrently c BSO
--- NOTE | 2022-07-11 09:38 | WPDHPUPDATE1 ---
History and Physical Update Update Date/Time: 07/11/22 09:38 History and Physical has been reviewed, including an updated exam of the patient. There are NO changes in the patient's condition. Risks, benefits, and alternatives have been discussed and questions answered. Patient agrees to proceed with procedure.
--- NOTE | 2022-07-11 09:40 | WPDHPUPDATE1 ---
History and Physical Update Update Date/Time: 07/11/22 09:40 History and Physical has been reviewed, including an updated exam of the patient. There are NO changes in the patient's condition. Risks, benefits, and alternatives have been discussed and questions answered. Patient agrees to proceed with procedure.
[2022-07-11] MEDS: ceFAZolin 3 GM/D5W 100 ML 100 ML IVPB (09:42)
--- NOTE | 2022-07-11 10:36 | P.OP_ITS ---
Procedure Note - Detailed Date of Procedure 07/11/22 Pre-op Diagnosis desires sterilization Post-op Diagnosis Same Procedure Performed Laparoscopic bilateral salpingectomy Surgeon Braulio Peguero MD Radiology Administrator Mikel Emerson Anesthesia General Indications Undesired fertility, desires permanent sterilization. Findings Uterus 10-12 week size, normal appearing ovaries and fallopian tubes bilaterally Description of Procedure After informed consent was obtained patient was taken to the operating room and general endotracheal anesthesia was administered. Exam under anesthesia performed. Normal exam. She was placed in low lithotomy need prep prepped sterile fashion. Attention was turned to the vagina speculum inserted single-tooth tenaculum placed on anterior lip of the cervix. [place]um uterine manipulator placed into the cervical canal. The manipulator would not secure properly therefore a Marya uterine manipulator was inserted and secured after the uterus sound to 11cm. The speculum was removed. Attention was then turned to the abdomen. With sterile gloves a vertical incision was made at the umbilicus and a Veress needle was inserted into the abdomen confirmation into the abdomen obtained with free flow of fluid and normal peritoneal pressures. A pneumoperitoneum of 15 mm per mercury was obtained. The 5 mm port was inserted under laparoscopic visualization at the umbilicus. Patient was placed in Trendelenburg position. Attention was turned to the left side of the abdomen and a 5 mm port was inserted under laparoscopic visualization. The pelvic organs were visualized. Attention was turned to the right side of the abdomen and another 5 mm port was inserted under laparoscopic visualization. Using the LigaSure the right fallopian tube was excised to near the entrance to the uterus. This was removed through the port. Attention was then turned to the left fallopian tube which was grabbed at the distal end and cauterized from the mesosalpinx to within a cm of the entrance to the entrance to the uterus. The fallopian tube was removed through the 5 mm port. Hemostasis was noted at both sites. Patient was taken out of Trendelenburg position the pneumoperitoneum was released and the skin incisions were closed in a subcuticular fashion with 4 O Vicryl. The tenaculum and manipulator were removed. Hemostasis noted at site. Patient tolerated procedure well. Estimated Blood Loss 5 Urine Output 300 Packing No Pathology Yes (right and left fallopian tube) Complications No immediate complications Condition Stable Disposition No change [facility] Billing Surgery - Charge Forward: Surgery Billing
[2022-07-11] MEDS: BUPIVACAINE HCL 0.5% PF 30 ML VIAL INFILTRATE (10:38)
[2022-07-11] MEDS: LIDOCAINE HCL 2% JELLY 5 ML TUBE 1 APPLIC MUCOUS MEM (10:50)
--- NOTE | 2022-07-11 11:19 | W.PM.PROC2 ---
Procedure Note - Detailed Date of Procedure 07/11/22 Pre-op Diagnosis External Hemorrhoids Post-op Diagnosis Same Procedure Performed Exam under anesthesia, external hemorrhoidectomy involving left lateral and right anterior positions Surgeon Heena Machuca MD Anesthesia General Indications 41 y/o F c external hemorrhoids desiring excision given symptomatology, bleeding Findings multiple external hemorrhoids predominately in L lateral and R anterior Description of Procedure The patient was taken to the operating room and placed in the modified lithotomy position. Of note, patient had already undergone laparoscopic BSO by Dr. Peguero, please see her full op note for details. Patient was already under general anesthesia and the patient was prepped and draped in the normal sterile fashion. A time-out was then done to verify the patient's identity, as well as the procedure being performed. I began by doing a digital exam. There was noted to be multiple external hemorrhoids, however no internal hemorrhoids were noted. At this point, a bilateral pudendal block was done. Then used the lone Star retractor to further evaluate the anal canal as well as rectum, other than external hemorrhoids no other pathology was noted. I then began excising the external hemorrhoids using the hand-held LigaSure device. The hemorrhoids were noted to be in the left lateral and right anterior positions. Multiple hemorrhoids were excised using the LigaSure. The specimens will be sent to pathology for further review. Hemostasis was noted at all excision sites. I then placed lidocaine jelly into the rectal vault. The patient tolerated the procedure and was extubated in the operating room postop. She will be transferred to the recovery room in stable condition. Estimated Blood Loss 5 Urine Output 300 Drains No Packing Yes Pathology Yes Complications No immediate complications Condition Stable Disposition PACU [facility] Billing Surgery - Charge Forward: Surgery Billing
[2022-07-11] MEDS: fentaNYL CITRATE INJ (*CRX) 100 MCG/2 ML VIAL 25 MCG IV PUSH ×3 (11:50→12:47)
[2022-07-11] MEDS: oxyCODONE HCL (*CRX) 5 MG TAB IR PO (12:25)
== END 2022-07-11 13:45 | disposition home or self-care (01) ==
PROVIDERS: Surgery; PCP Physician Assistant Medical; Visit Provider Obstetrics & Gynecology
PROC: (CPT 49320; principal; 2022-07-11 09:30)
PROC: (CPT 46250; 2022-07-11 09:30)
DX: Z30.2 Encounter for sterilization (principal); K64.4 Residual hemorrhoidal skin tags; K58.9 Irritable bowel syndrome, unspecified; E66.01 Morbid (severe) obesity due to excess calories; Z68.39 Body mass index [BMI] 39.0-39.9, adult
CPT/HCPCS: 46250; 58661; 88302; 88304; A9270; J0690; J1100; J1885; J2250; J2370; J2405; J2704; J2710; J3010; J7120

== ENCOUNTER 2022-10-29 14:46 | Emergency (ER) | payer OTHER, SELFPAY ==
[2022-10-29 15:04] VITALS: BP 116/87; PULSE 85; RESP 16; TEMP 36.6; O2SAT 99
--- NOTE | 2022-10-29 16:03 | ED.EYEPROB ---
HPI - Eye Problem General Chief complaint: Eye Problems Stated complaint: rt eye irritation Time Seen by Provider: 10/29/22 16:03 Source: patient, RN notes reviewed and old records reviewed Mode of arrival: ambulatory Limitations: no limitations History of Present Illness HPI Narrative: 41 year old female who presents to [facility] care with complaints of right eye irritation, redness,pain which started last night with matting noted to her right eye this morning. Patient reports that vision sl blurry with excess watering and photosensitivity. Patient denies any trauma to right eye, denies any foreign body to right eye. Patient reports pain to her right eye as being 6/10 with headache also. visual acuity right 20/30 with glasses, Left eye 20/15 with glasses chief complaint: eye pain, eye redness and other (watering) Onset (ago): day(s) (last night) Severity scale (1-10): 6 Treatments Prior to Arrival: NSAID Related Data Home Medications Medication Instructions Recorded Confirmed cetirizine 10 mg capsule (Zyrtec) 10 mg PO DAILY 03/08/22 10/29/22 cholecalciferol (vitamin D3) 25 100 mcg PO DAILY 03/08/22 10/29/22 mcg (1,000 unit) capsule docusate sodium 50 mg capsule 100 mg PO DAILY 03/08/22 10/29/22 (Stool Softener) prenat.vits,ebonie,bfc-xelp-jhgpg 1 tablet PO DAILY 03/08/22 10/29/22 wheat dextrin 5 gram/7.4 gram oral 5 g PO BID 07/02/22 10/29/22 powder (Benefiber Healthy Shape) Allergies Allergy/AdvReac Type Severity Reaction Status Date / Time No Known Allergies Allergy Verified 10/29/22 15:09 Review of Systems Review of Systems: CONSTITUTIONAL: Denies fever, chills, or sweats. EYES:sl blurry vision right eye Reports redness,, irritation, discharge right eye, watering and pain photosensitivity ENT: Denies rhinorrhea, congestion, sore throat, or otalgia. CARDIOVASCULAR: Denies chest pain, palpitations, or edema. RESPIRATORY: Denies cough or dyspnea. SKIN: Denies rash or itching. NEUROLOGIC: Reports headache All systems reviewed & are unremarkable except as noted in HPI and below PMFSH Past Medical History Medical History GERD (gastroesophageal reflux disease) Headache IBS (irritable bowel syndrome) Missed x1 Vaginal delivery x2 Surgical History Surgical History H/O hemorrhoidectomy REUA and hemorrhoidectomy on 07/11/22 History of dilation and curettage S/P cholecystectomy [place] teeth extracted Family History Family History Mother Alcoholism Diabetes mellitus Depression Grandparent Alcoholism Breast cancer Liver cancer Uterine cancer Pancreatic cancer Social History Social History Social History: occasional caffeine use- soda Smoking status: Never smoker Second hand tobacco smoke exposure: No Alcohol intake: never Substance use: never Living arrangements: with family Additional living arrangements comments: Patient is and has two children. 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 There is no relevant family history pertinent to the presenting complaint Exam Narrative: GENERAL: Well-appearing, well-nourished, and in no acute distress. HEAD: Normocephalic, atraumatic. EYES: PERRLA and EOMI. Upper and lower eyelids unremarkable. No periorbital cellulitis noted. Sclera and conjunctivae injected right eye with photophobia watering to right eye ENT: Nares clear, no rhinorrhea or epistaxis. Mucous membranes moist. NECK: [place]
== END 2022-10-29 16:15 | disposition home or self-care (01) ==
PROVIDERS: Emergency Provider Registered Nurse; PCP Physician Assistant Medical
DX: H10.9 Unspecified conjunctivitis (principal)
CPT/HCPCS: 99213; G0463

== ENCOUNTER 2024-06-17 11:26 | Outpatient (CLI) | payer OTHER, SELFPAY ==
[2024-06-17 11:40] LABS: Hematocrit 41.8 % (37.0-47.0); Hemoglobin 13.6 g/dL (12.0-15.0); Mean Corpuscular HGB Conc 32.5 g/dl (32-36); Mean Corpuscular Hemoglobin 28.5 pg (26-34); Mean Corpuscular Volume 87.4 fl (80-100); Mean Platelet Volume 9.3 fl (7.4-10.4); Platelet Count Result 227 k/mm3 (150-375); Red Blood Count 4.78 M/mm3 (4.2-5.4); Red Cell Distribution Width 13.9 % (11.5-14.5)
== END 2024-06-17 11:27 | disposition home or self-care (01) ==
LOC: ANHLAB 11:27
PROVIDERS: PCP Physician Assistant Medical; Visit Provider Obstetrics & Gynecology
DX: N92.0 Excessive and frequent menstruation with regular cycle (principal)
CPT/HCPCS: 36415; 85027

== ENCOUNTER 2024-11-26 15:07 | Outpatient (CLI) | payer OTHER, SELFPAY ==
--- NOTE | ~2024-11-26 | MM_ITS ---
EXAMINATION: MM screening amanda BI w john HISTORY: Screening TECHNIQUE: Craniocaudal and mediolateral oblique 3-D tomosynthesis images were obtained and synthetic 2-D images were generated. CAD analysis was submitted and interpreted. COMPARISON: No prior mammogram is available for comparison at this institution. BREAST PARENCHYMAL COMPOSITION: Not Dense. The breasts are almost entirely fatty. FINDINGS: There is no evidence of suspicious mass, calcification, or architectural distortion to sugg est malignancy in either breast. There has been no suspicious interval change. IMPRESSION: 1. No mammographic evidence of malignancy. 2. Recommend routine screening mammography in one year. BI-RADS Category 1: Negative Reviewed, dictated and finalized at location A.
--- OUTSIDE RECORDS SUMMARY | 2024-11-26 16:21 | XMS_ITS | Clinical Summary ---
Author Organization [facility] [address] [place] [address] Care Team Providers Care Business Management Professor Name Role Phone Nisreen Aguirre Primary Care Provider [phone]- [phone] Allergies No known active allergies Medications cetirizine (ZyrTEC) 10 mg tablet Take 1 tablet (10 mg total) by mouth daily Active multivitamin with minerals tablet Take 1 tablet by mouth daily Active lidocaine viscous (XYLOCAINE) 2 % solutionIndicati ons:Pharyngitis, unspecified etiology Gargle and spit 5 mls every six hours as needed for discomfort. Do not exceed maximum dose of of 4 times daily. 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 Respiratory Rate 18 08/27/2024 10: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 Oxygen Saturation 96% 08/27/2024 10: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 Inhaled Oxygen Concentration - - Weight 130.6 kg (288 lb) 08/27/2024 10: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 Height 175.3 cm (5' 9 ) 08/27/2024 10: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 Body Mass Index 42.53 08/27/2024 10: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 Plan of Treatment Health Maintenance Due Date Last Done Comments Breast Cancer Screening-Mammogram 1978 Cervical Cancer Screening 1978 Colon Cancer Screening-Colonoscopy 1978 Depression Screening 1978 Hepatitis C Screening 1978 Hepatitis B Screening 1996 Regular Well Visit/Exam 18-64 1996 Covid-19 Vaccine (4 - 2023-2 5 season) 2024 07/16/2021, 11/25/2020, 11/04/2020 Influenza Vaccine (#1) 2024 06/13/2021 DTaP/Tdap/Td Vaccine (2 - Td or Tdap) 11/28/2031 11/27/2021 HPV Vaccines Aged Out No longer eligi ble based on patient's age to complete this topic Pneumococcal vaccine <65 Aged Out No longer eligible based on patient's age to complete this topic Insurance [facility] CHOICE PLUS Care Teams Business Management Professor Relationship Specialty Start Date End Date Nisreen Aguirre PA [address] [place] [id number] PCP - General Physician Barrel Turner 08/27/24
--- OUTSIDE RECORDS SUMMARY | 2024-11-26 16:21 | XMS_ITS | Referral Summary ---
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 Gender Identity Not on file Sexual Orientation Not on file Last Filed Vital Signs Vital Sign Reading Time Taken Comments Blood Pressure 129/85 08/27/2024 10:41 AM SCREED PERSON Pulse 88 08/27/2024 10:41 AM SCREED PERSON Temperature 37.1 C (98.8 F) 08/27/2024 10:41 AM SCREED PERSON Respiratory Rate 18 08/27/2024 10:41 AM SCREED PERSON Oxygen Saturation 96% 08/27/2024 10:41 AM SCREED PERSON Inhaled Oxygen Concentration - - Weight 130.6 kg (288 lb) 08/27/2024 10:41 AM SCREED PERSON Height 175.3 cm (5' 9 ) 08/27/2024 10:41 AM SCREED PERSON Body Mass Index 42.53 08/27/2024 10:41 AM SCREED PERSON Plan of Treatment Not on file Insurance [facility] CHOICE PLUS Care Teams Special Tester Relationship Specialty Start Date End Date Nisreen Aguirre PA [address] [place] [phone] PCP - General Physician Radio Script Writer 08/27/24
== END 2024-11-26 15:08 | disposition home or self-care (01) ==
PROVIDERS: PCP Physician Assistant Medical; Visit Provider Obstetrics & Gynecology
DX: Z12.31 Encounter for screening mammogram for malignant neoplasm of breast (principal)
CPT/HCPCS: 77063; 77067